=== PATIENT | female | born 1955 | race Caucasian/White ===

== ENCOUNTER → 2018-05-18 | Outpatient (CLI) | payer OTHER ==
[~2018-05-18] MED LIST: AREDS PO; CETIRIZINE HCL10 MG PO; CRESTOR10 MG PO; EYE IRRIGATING118 ML OP; HYDROCHLOROTHIA25 MG PO; HYDROXYZINE HCL25 MG PO; LOSARTAN POTAS100 MG PO
== END ==
LOC: MAMMO 08:56
PROVIDERS: ATTEND Internal Medicine
DX: Z12.31 Encounter for screening mammogram for malignant neoplasm of breast (principal); R42 Dizziness and giddiness
CPT/HCPCS: 77067

== ENCOUNTER → 2018-06-22 | Outpatient (CLI) | payer OTHER ==
--- NOTE | 2018-06-23 08:49 | Diagnostic Imaging Report ---
#[id number] - MGDXLT #UNILATERAL LEFT DIGITAL DIAGNOSTIC MAMMOGRAM WITH SPOT COMPRESSION: 06/22/2018 Comparison is made to exams dated: 05/18/2018 mammogram, 01/04/2017 mammogram and 12/02/2016 mammogram - [facility] [place]. Current study contains 3 films. The tissue of the left breast is heterogeneously dense. This may lower the sensitivity of mammography. The density noted on the most recent prior exam persists and is indeterminate. An ultrasound is recommended and will be performed today. No significant masses, calcifications, or other findings are seen in the breast. IMPRESSION: INCOMPLETE: NEEDS ADDITIONAL IMAGING EVALUATION Nodular density in the left breast-further evaluation with ultrasound is recommended and will be performed today. Garfield Chester Jr., D.O. cw/:06/22/2018 15:09:21 Spiral Winder: Tatum MATHEW)(M), [facility] letter sent: Additional Imaging Needed Mammogram BI-RADS: 0 Indeterminate
--- NOTE | 2018-06-23 08:49 | Diagnostic Imaging Report ---
#[id number] - USBRELIMLT ULTRASOUND OF THE LEFT BREAST : 06/22/2018 Comparison is made to exams dated: 06/22/2018 mammogram, 05/18/2018 mammogram, 01/04/2017 mammogram and 12/02/2016 mammogram - [facility]. Color flow and real-time ultrasound were performed on the left breast with scanning from 6-12 o'clcok going through the 9 o'clock position. -At 7 o'clock 3 cm from the nipple there is a 4 x 5 x 7 cm cyst. This likely corresponds to the mammographic finding. -At 6 o'clock a subcutaneous cystic lesion lesion measuring 8 x 7 x 8 mm is benign. --At 12 o'clock 4 cm from the nipple there is a 3 x 3 x 5 mm cyst. IMPRESSION: BENIGN There is no sonographic evidence of malignancy. A 1 year screening mammogram is recommended. Garfield Chetser Jr., D.O. cw/:06/22/2018 15:52:50 Concert Promoter: Samina Vega [facility], [facility] letter sent: Normal Exam Ultrasound BI-RADS: 2 Benign
== END ==
LOC: MAMMO 08:11
PROVIDERS: ATTEND Internal Medicine Interventional Cardiology
DX: N64.89 Other specified disorders of breast (principal)